=== PATIENT | female | born 1975 | race African-American/Black ===

== ENCOUNTER 2017-03-11 20:06 | Emergency (ER) | payer MEDICARE ==
[~2017-03-11] VITALS: Ht 165.1 cm; Wt 63.7 kg
[2017-03-11] MEDS ORDERED: SODIUM CHLORIDE FLUSH 10ML SYR IVF ONE (20:30)
[2017-03-11 21:11] LABS: HEMATOCRIT 34.1 % (34.6-47.8); HEMOGLOBIN 11.3 g/dL (11.7-16.4); WHITE BLOOD COUNT 4.7 x10^3/uL (3.4-10)
[2017-03-11 21:34] LABS: DIFF TOTAL CELLS COUNTED 100 CELL DIFF
[2017-03-11 21:37] LABS: ANISOCYTOSIS 1+; HYPOCHROMIA 1+; OVALOCYTES 1+; TARGET CELLS 1+; VERIFY COUNTS? YES
[2017-03-11 21:38] LABS: LARGE PLATELETS 1+
[2017-03-11 21:40] LABS: BLOOD UREA NITROGEN 13 mg/dL (7-18)
[2017-03-11] MEDS ORDERED: OMNIPAQUE 350 MG/ML, 100ML BOTTLE ONE (22:03)
[2017-03-11] MEDS ORDERED: HYDROcodone/APAP 5/325 TABLET PO ONE (22:30)
[2017-03-11 23:03] VITALS: BP 130/92
== END 2017-03-11 23:05 | disposition home or self-care (01) ==
LOC: ED 22:35
DX: K11.5 Sialolithiasis (principal); F17.210 Nicotine dependence, cigarettes, uncomplicated; E04.2 Nontoxic multinodular goiter; Z88.0 Allergy status to penicillin
CPT/HCPCS: 36415; 70491; 80048; 82040; 85025; 99285; Q9967

== ENCOUNTER 2017-04-28 15:09 | Emergency (ER) | payer MEDICARE ==
[~2017-04-28] VITALS: Ht 165.1 cm; Wt 60.0 kg
[2017-04-28 15:55] LABS: ALBUMIN 3.5 g/dL (3.4-5.0); ANION GAP 7 mmol/L (5-15); CALCIUM 8.3 mg/dL (8.5-10.1); CHLORIDE 104 mmol/L (98-107)
[2017-04-28 16:03] LABS: ALANINE AMINOTRANSFERASE 27 U/L (12-78); ALKALINE PHOSPHATASE 78 U/L (45-117); BILIRUBIN,TOTAL 0.4 mg/dL (0.2-1.0); CREATININE 0.68 mg/dL (0.55-1.02); TOTAL PROTEIN 7.4 g/dL (6.4-8.2)
[2017-04-28 16:12] LABS: MEAN CORPUSCULAR HEMOGLOBIN 23.4 pg (27.0-34.8); MEAN CORPUSCULAR HGB CONC 31.2 g/dL (32.4-35.8); MEAN CORPUSCULAR VOLUME 75.2 fL (80-100); MEAN PLATELET VOLUME 8.1 fL (7.4-10.4); PLATELET COUNT 422 x10^3/uL (130-400); RED BLOOD COUNT 4.48 x10^6/uL (3.82-5.3)
[2017-04-28 16:13] LABS: MD YES
[2017-04-28 16:16] LABS: BASOS#(MANUAL) 0.06 x10^3/uL (0-0.1); BASOS% (MANUAL) 1 % (0-1); LYMPHS% (MANUAL) 22 % (22-44); MONOS#(MANUAL) 0.94 x10^3/uL (0.3-2.7); MONOS% (MANUAL) 16 % (2-9); REACTIVE LYMPHS # (MANUAL) 0.18 x10^3/uL (0-0); REACTIVE LYMPHS % (MANUAL) 3 % (0-0); SEG#(MANUAL) 3.42 x10^3/uL (1.8-6.8); SEGS% (MANUAL) 58 % (42-75)
[2017-04-28 16:17] LABS: ANISOCYTOSIS 1+; HYPOCHROMIA 1+; MICROCYTOSIS 1+; OVALOCYTES 1+; TARGET CELLS 1+
[2017-04-28 16:18] LABS: <PLATELET ESTIMATE> ADEQUATE; LARGE PLATELETS 1+
[2017-04-28] MEDS ORDERED: SODIUM CHLORIDE 0.9% 1,000 ML IV ONE (17:41)
[2017-04-28] MEDS ORDERED: MORPHINE SULFATE 4 MG/ML, 1ML IVPush PRN (18:00)
[2017-04-28] MEDS ORDERED: ONDANSETRON 2MG/ML, 2ML IVPush ONE (18:00)
[2017-04-28] MEDS ORDERED: SODIUM CHLORIDE 0.9% 1,000ML IVBOLUS ONE (18:00)
[2017-04-28] MEDS ORDERED: MORPHINE SULFATE 4 MG/ML, 1ML ONE (18:02)
[2017-04-28] MEDS ORDERED: ONDANSETRON 2MG/ML, 2ML ONE (18:03)
[2017-04-28 18:07] LABS: MICROSCOPIC NOT IND
[2017-04-28 18:14] LABS: CULTURE INDICATED? NO
[2017-04-28] MEDS ORDERED: IBUPROFEN 200 MG TABLET ONE (20:04)
[2017-04-28 20:11] VITALS: BP 158/101
[2017-04-28] MEDS ORDERED: IBUPROFEN 200 MG TABLET PO ONE (20:30)
== END 2017-04-28 20:14 | disposition home or self-care (01) ==
LOC: ED 17:35
DX: N83.202 Unspecified ovarian cyst, left side (principal); Z98.51 Tubal ligation status; Z86.73 Personal history of transient ischemic attack (TIA), and cerebral infarction without residual deficits
CPT/HCPCS: 36415; 76830; 80053; 81003; 83690; 84703; 85025; 96361; 96374; 96375; 99285; J2405; J7030

== ENCOUNTER 2017-10-15 08:02 | Emergency (ER) | payer MEDICARE ==
[~2017-10-15] VITALS: Ht 162.6 cm; Wt 63.2 kg
[2017-10-15] MEDS ORDERED: ONDANSETRON 2MG/ML, 2ML ONE (08:24)
[2017-10-15] MEDS ORDERED: HYDROmorphone 2 MG/ML, 1ML ONE (08:24)
[2017-10-15] MEDS ORDERED: SODIUM CHLORIDE FLUSH 10ML SYR IVF ONE (08:30)
[2017-10-15] MEDS ORDERED: HYDROmorphone 2 MG/ML, 1ML IVPush ONE (08:30)
[2017-10-15] MEDS ORDERED: SODIUM CHLORIDE 0.9% 1,000ML IVBOLUS ONE (08:30)
[2017-10-15] MEDS ORDERED: ONDANSETRON 2MG/ML, 2ML IVPush ONE (08:30)
[2017-10-15 08:51] LABS: ALBUMIN 3.7 g/dL (3.4-5.0); CALCIUM 8.9 mg/dL (8.5-10.1); CHLORIDE 108 mmol/L (98-107)
[2017-10-15 08:59] LABS: ALANINE AMINOTRANSFERASE 19 U/L (12-78); ALKALINE PHOSPHATASE 88 U/L (45-117); ANION GAP 9 mmol/L (5-15); BILIRUBIN,TOTAL 0.4 mg/dL (0.2-1.0); CREATININE 0.87 mg/dL (0.55-1.02); MEAN CORPUSCULAR HEMOGLOBIN 22.2 pg (27.0-34.8); MEAN CORPUSCULAR HGB CONC 31.1 g/dL (32.4-35.8); MEAN CORPUSCULAR VOLUME 71.5 fL (80-100); MEAN PLATELET VOLUME 8.2 fL (7.4-10.4); PLATELET COUNT 493 x10^3/uL (130-400); RED BLOOD COUNT 4.82 x10^6/uL (3.82-5.3); TOTAL PROTEIN 7.9 g/dL (6.4-8.2)
[2017-10-15 09:06] LABS: MD YES
[2017-10-15 09:09] LABS: BASOS#(MANUAL) 0.08 x10^3/uL (0-0.1); BASOS% (MANUAL) 1 % (0-1); MONOS% (MANUAL) 8 % (2-9)
[2017-10-15 09:10] LABS: LYMPH#(MANUAL) 2.18 x10^3/uL (1-3.4); LYMPHS% (MANUAL) 29 % (22-44); SEG#(MANUAL) 4.65 x10^3/uL (1.8-6.8); SEGS% (MANUAL) 62 % (42-75)
[2017-10-15 09:12] LABS: ANISOCYTOSIS 1+; HYPOCHROMIA 1+; MICROCYTOSIS 1+
[2017-10-15 09:13] LABS: <PLATELET ESTIMATE> INCREASED; <PLT MORPHOLOGY> NORMAL PLT MORPH
[2017-10-15 09:30] LABS: MICROSCOPIC INDICATED
[2017-10-15 10:23] LABS: CULTURE INDICATED? NO
[2017-10-15 10:36] LABS: CLUE CELLS NONE SEEN (NONE SEEN); WET PREP WBCS MODERATE (FEW)
[2017-10-15] MEDS ORDERED: OMNIPAQUE 350 MG/ML, 100ML BOTTLE ONE (10:41)
[2017-10-15 10:48] VITALS: BP 117/82
[2017-10-15] MEDS ORDERED: CEFTRIAXONE 250 MG IM ONE (11:00)
[2017-10-15] MEDS ORDERED: AZITHROMYCIN 500 MG TABLET PO ONE (11:00)
[2017-10-15] MEDS ORDERED: CEFTRIAXONE 250 MG ONE (11:05)
[2017-10-15] MEDS ORDERED: AZITHROMYCIN 250 MG TABLET ONE (11:05)
[2017-10-15] MEDS ORDERED: KETOROLAC 30 MG/1 ML ONE (11:54)
[2017-10-15] MEDS ORDERED: KETOROLAC 30 MG/1 ML IVPush ONE (12:00)
== END 2017-10-15 12:15 | disposition home or self-care (01) ==
LOC: ED 09:33
DX: R10.2 Pelvic and perineal pain (principal); R11.2 Nausea with vomiting, unspecified; F17.200 Nicotine dependence, unspecified, uncomplicated; Z88.0 Allergy status to penicillin; Z98.51 Tubal ligation status
CPT/HCPCS: 36415; 74177; 76830; 76857; 80053; 81001; 83690; 84703; 85025; 87210; 87491; 87591; 87808; 93005; 96361; 96374; 96375; 99285; J1170; J1885; J2405; J7030; Q9967

== ENCOUNTER 2018-02-18 20:42 | Emergency (ER) | payer MEDICARE ==
[~2018-02-18] VITALS: Ht 162.6 cm; Wt 64.0 kg
[2018-02-18 20:52] VITALS: BP 129/77
[2018-02-18] MEDS ORDERED: KETOROLAC 30 MG/1 ML ONE (21:11)
[2018-02-18] MEDS ORDERED: KETOROLAC 30 MG/1 ML IM ONE (21:30)
== END 2018-02-18 21:37 | disposition home or self-care (01) ==
LOC: ED 21:30
DX: R20.1 Hypoesthesia of skin (principal); Z98.51 Tubal ligation status
CPT/HCPCS: 96372; 99283; J1885